=== PATIENT | female | born 1995 | race Caucasian/White ===

== ENCOUNTER 2024-04-03 09:21 | Emergency (ER) | payer OTHER, SELFPAY ==
--- NOTE | ~2024-04-03 | XR_ITS ---
EXAMINATION: XR wrist RT min 3V DATE: 04/03/2024 10:03 INDICATION: Dorsal right wrist pain TECHNIQUE: Posteroanterior, ulnar deviation, oblique, and lateral views of the right wrist were obtai linda. COMPARISON: none FINDINGS: 3 mm ulnar minus variance. Alignment is otherwise normal. No fracture. Joint spaces are normal. A bra celet projects across the distal forearm. Soft tissues are unremarkable. IMPRESSION: 1. 3 mm ulnar minus variance. Otherwise negative right wrist radiographs. Reviewed, dictated and finalized at location A.
--- NOTE | 2024-04-03 09:25 | ED.UPPEXIN ---
HPI - Extremity Injury (Upper) General Chief Complaint: Extremity Injury, Upper Stated Complaint: R WRIST PAIN Time Seen by Provider: 04/03/24 09:36 Source: patient, RN notes reviewed and old records reviewed Mode of arrival: ambulatory Limitations: no limitations History of Present Illness HPI narrative: 28-year-old female presents to the [facility] with complaints of right wrist pain but started Sunday, 3 days ago while blow drying hair. Patient describes it as a pinch feeling to the dorsal distal radius. No bruising or swelling noted. Decreased range of motion secondary to pain. Patient also reports pain with movement of the thumb. Onset (ago): day(s) (3) Treatments prior to arrival: other (Tylenol) Related Data Home Medications Medication Instructions Recorded Confirmed levonorgestrel 14 mcg/24 hr (up to 1 device intrauterine ONCE 09/24/23 04/03/24 3 yrs) 13.5 mg intrauterine device (Treva) Allergies Allergy/AdvReac Type Severity Reaction Status Date / Time amoxicillin Allergy Unknown Skin Verified 04/03/24 11:51 Reaction cefaclor Allergy Unknown Unknown Verified 04/03/24 11:51 clarithromycin Allergy Unknown Skin Verified 04/03/24 11:51 Reaction AMOXICILLIN TRIHYDRATE Allergy Unknown Unknown Uncoded 04/03/24 11:51 Review of Systems Review of Systems: All systems reviewed & are unremarkable except as noted in HPI and below Constitutional: Constitutional: Reports no additional constitutional complaints Eyes: Eyes: Reports no additional eye complaints ENT: Reports system reviewed and no additional complaints, except as documented Cardiovascular: Cardiovascular: Reports no additional cardiovascular complaints, Denies chest pain and Denies dyspnea Respiratory: Respiratory: Reports no additional respiratory complaints, Denies chest congestion, Denies cough and Denies dyspnea Gastrointestinal: Gastrointestinal: Reports no additional gastrointestinal complaints, Denies abdominal pain, Denies nausea and Denies vomiting Musculoskeletal: Musculoskeletal: Reports as per HPI and Reports arthralgias (Right wrist) Integumentary/Breasts: Skin/Breast: Reports system reviewed and no additional complaints, except as docu Neurologic: Reports system reviewed and no additional complaints, except as documented Psychiatric: Psychiatric: Reports no additional psychiatric complaints Allergic/Immunologic: Allergic/Immunologic: Reports no additional allergic/immunologic complaints PMFSH Surgical History Surgical History H/O gynecological procedure IUD insertion -05/2019 History of appendectomy History of gynecological procedure (09/24/23) treva iud insertion Family History Family History Father Hypertension Other Family history of cardiovascular disease Social History Social History Smoking status: Never smoker Alcohol intake: never Substance use: never Substance use type: does not use Lack of Transportation: No Lack of Food: Never True Current Housing: I Have Housing Concerned About Future Housing: No Difficulty Paying Gas/Electric Bills: No Difficulty Paying for Meds: No Currently Unemployed: No Education: Trade/Vocational Certificate Difficulty w/ Childcare or Family Care: No Living arrangements: with family Additional living arrangements comments: spouse Occupation/Education: occupation Additional occupation/education comments: Hairdresser Gender identity (if verbalized by the patient): Female Sexual Orientation (if Verbalized by the Patient): Straight or Heterosexual Comments At the time of my signature, I reviewed and agree with the nursing past medical, surgical, social, and family history. There is no relevant family history pertinent to the patient complaint. Exam Const: General: coop
[2024-04-03 09:34] VITALS: BP 117/74; PULSE 80; RESP 16; TEMP 37.2; O2SAT 100
== END 2024-04-03 11:06 | disposition home or self-care (01) ==
PROVIDERS: Emergency Provider Nurse Practitioner; PCP Family Medicine
DX: M25.531 Pain in right wrist (principal)
CPT/HCPCS: 73110; 99213; G0463

== ENCOUNTER 2025-08-11 08:36 | Outpatient (CLI) | payer OTHER, SELFPAY ==
--- NOTE | ~2025-08-11 | XR_ITS ---
EXAMINATION: XR abdomen/kub 1V, 08/11/2025 9:00 CDT HISTORY: Unspecified abdominal pain, sharp pain x 3 weeks COMPARISON: No comparisons available. Technique: 3 view. Findings: Bowel gas pattern unremarkable. No obstruction. No free air. No abnormal calcifications No acute osseous abnormality. Impression: 1. No acute abnormality. Reviewed, dictated and finalized at location A. Impression: 1. No acute abnormality.
== END 2025-08-11 08:37 | disposition home or self-care (01) ==
LOC: GOSHIMG 08:37
PROVIDERS: PCP Family Medicine; Visit Provider Family Medicine
DX: R10.9 Unspecified abdominal pain (principal)
CPT/HCPCS: 74018